=== PATIENT | female | born 1960 | race Caucasian/White ===

== ENCOUNTER → 2019-05-19 11:40 | Outpatient (BNVA) | payer MEDICAID, SELFPAY | PROVIDERS: Family Provider Family Medicine; PCP Family Medicine; Visit Provider Podiatrist Foot & Ankle Surgery | DX: M21.612 Bunion of left foot (principal) | CPT/HCPCS: 73620; 73630 ==

== ENCOUNTER 2019-06-10 11:06 | Outpatient (CLI) | payer MEDICAID, SELFPAY ==
--- NOTE | 2019-06-10 11:15 | XR_ITS ---
WS: [id number] KNEES AP STANDING TECHNIQUE: Bilateral AP weightbearing view. CLINICAL INFORMATION: PAIN COMPARISON: None. FINDINGS: Bilateral AP weightbearing standing views. Mild bilateral medial compartment narrowing left greater t topete right. Lateral compartments are better preserved. Mild hypertrophic changes along the joint line. Small left suprapatellar effusion. Moderate narrowing at the patellofemoral articulations bilaterall y. XR/[place] [id number] IMPRESSION: 1. Mild bilateral medial compartment narrowing left greater than right. 2. Small left suprapatellar effusion.
== END 2019-06-10 11:07 | disposition home or self-care (01) ==
LOC: RAD 11:10
PROVIDERS: Family Provider Family Medicine; PCP Family Medicine; Visit Provider Orthopaedic Surgery
DX: M25.469 Effusion, unspecified knee (principal); M25.569 Pain in unspecified knee
CPT/HCPCS: 73565

== ENCOUNTER → 2019-06-16 10:58 | Outpatient (BNVA) | payer MEDICAID, SELFPAY | PROVIDERS: Family Provider Family Medicine; PCP Family Medicine; Visit Provider Family Medicine | DX: M25.562 Pain in left knee (principal); G89.29 Other chronic pain; I10 Essential (primary) hypertension; Z13.220 Encounter for screening for lipoid disorders; Z13.6 Encounter for screening for cardiovascular disorders; Z13.1 Encounter for screening for diabetes mellitus | CPT/HCPCS: 80053; 80061; 83036; 83721 ==

== ENCOUNTER → 2019-07-09 13:15 | Outpatient (BNVA) | payer MEDICAID, SELFPAY | PROVIDERS: Family Provider Family Medicine; PCP Family Medicine; Visit Provider Nurse Practitioner | DX: F43.12 Post-traumatic stress disorder, chronic (principal); F33.2 Major depressive disorder, recurrent severe without psychotic features | CPT/HCPCS: 99213 ==

== ENCOUNTER 2019-09-25 14:24 | Outpatient (CLI) | payer MEDICAID, SELFPAY ==
--- NOTE | 2019-09-25 14:39 | MR_ITS ---
WS: [id number] MRI LEFT KNEE HISTORY: left knee osteoarthritis COMPARISON: 06/10/2019 radiographs. Anterior cruciate ligament: Moderate increased signal throughout the ACL and the ACL is very thin dis tally. Majority of the fibers are intact but there is probably a partial tear. Posterior cruciate ligament: Intact. Medial collateral ligament: MCL is slightly displaced from the knee joint by an extruded meniscus and osteophytes. Posterior lateral corner structures: There is increased signal in the popliteus tendon and the fibula r collateral ligament consistent with a partial tear. Medial menisci: Increased signal in the posterior horn blunting of the free edge. There is abnormal s ignal towards the meniscal root and also extending along the inferior articular surface. Anterior hor n is normal. Lateral meniscus: Intact. Normal signal, size and shape. Extensor mechanism: Distal quadriceps tendon and patellar tendons are intact. Fluid and soft tissue: Moderate-sized suprapatellar joint effusion. Fluid extends along the popliteus tendon and muscle. There is a very small Rand's cyst. Osseous and articular structures: Patellofemoral compartment: Mild narrowing of the joint space. Thinning and loss of cartilage over th e patellar eminence and medial patellar facet. No marrow edema within the patella. Medial compartment: Moderate narrowing of the medial compartment with small osteophytes. Mild thinnin g of the cartilage. There is a small amount of marrow edema in the far medial tibial plateau. No subc hondral cystic changes along the weightbearing surface. Lateral compartment: Very mild narrowing of the lateral compartment with small osteophytes. Thinning of the cartilage and fissuring. No marrow edema. MR/MR knee LT wo con* [id number] IMPRESSION: 1. Moderate-sized joint effusion with fluid extending along the popliteus tend on. 2. Partial tears involving the popliteus tendon and the fibular collateral lig ament. 3. Abnormal signal in the posterior horn medial meniscus along the inferior ar ticular surface and towards the meniscal root consistent with tears. 4. Partial tear ACL. 5. 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
== END 2019-09-25 14:25 | disposition home or self-care (01) ==
LOC: RADWPI 14:27
PROVIDERS: Family Provider Family Medicine; PCP Family Medicine; Visit Provider Orthopaedic Surgery
DX: M17.12 Unilateral primary osteoarthritis, left knee (principal); M25.462 Effusion, left knee; S86.812A Strain of other muscle(s) and tendon(s) at lower leg level, left leg, initial encounter; X58.XXXA Exposure to other specified factors, initial encounter; S83.512A Sprain of anterior cruciate ligament of left knee, initial encounter; M22.42 Chondromalacia patellae, left knee
CPT/HCPCS: 73721

== ENCOUNTER → 2019-10-08 07:48 | Outpatient (BNVA) | payer MEDICAID, SELFPAY | PROVIDERS: Family Provider Family Medicine; PCP Family Medicine; Visit Provider Nurse Practitioner | DX: F43.12 Post-traumatic stress disorder, chronic (principal); F33.2 Major depressive disorder, recurrent severe without psychotic features; F41.0 Panic disorder [episodic paroxysmal anxiety] | CPT/HCPCS: 99214 ==

== ENCOUNTER → 2019-10-27 17:31 | Outpatient (BNVA) | payer MEDICAID, SELFPAY | PROVIDERS: Family Provider Family Medicine; PCP Family Medicine; Visit Provider Family Medicine | DX: M1A.0790 Idiopathic chronic gout, unspecified ankle and foot, without tophus (tophi) (principal); M17.12 Unilateral primary osteoarthritis, left knee; R74.8 Abnormal levels of other serum enzymes; A60.9 Anogenital herpesviral infection, unspecified; R30.0 Dysuria | CPT/HCPCS: 80053; 81000; 84550 ==

== ENCOUNTER → 2019-12-11 14:53 | Outpatient (BNVA) | payer MEDICAID, SELFPAY | PROVIDERS: Family Provider Family Medicine; PCP Family Medicine; Visit Provider Family Medicine | DX: D22.9 Melanocytic nevi, unspecified (principal) | CPT/HCPCS: 88305 ==

== ENCOUNTER → 2020-01-08 10:14 | Outpatient (BNVA) | payer MEDICAID, SELFPAY | PROVIDERS: Family Provider Family Medicine; PCP Family Medicine; Visit Provider Nurse Practitioner | DX: F33.2 Major depressive disorder, recurrent severe without psychotic features (principal); F43.12 Post-traumatic stress disorder, chronic | CPT/HCPCS: 99213 ==

== ENCOUNTER → 2020-01-12 17:53 | Outpatient (BNVA) | payer MEDICAID, SELFPAY | PROVIDERS: Family Provider Family Medicine; PCP Family Medicine; Visit Provider Nurse Practitioner Family | DX: Z01.818 Encounter for other preprocedural examination (principal) | CPT/HCPCS: 80048 ==

== ENCOUNTER → 2020-01-19 12:00 | Outpatient (BNVA) | payer MEDICAID, SELFPAY | PROVIDERS: Family Provider Family Medicine; PCP Family Medicine; Visit Provider Family Medicine | DX: E78.1 Pure hyperglyceridemia (principal); G47.00 Insomnia, unspecified; F17.200 Nicotine dependence, unspecified, uncomplicated; A60.00 Herpesviral infection of urogenital system, unspecified; G89.29 Other chronic pain; F51.04 Psychophysiologic insomnia; Z22.322 Carrier or suspected carrier of Methicillin resistant Staphylococcus aureus; R74.8 Abnormal levels of other serum enzymes; A60.9 Anogenital herpesviral infection, unspecified | CPT/HCPCS: 80053; 80061 ==

== ENCOUNTER → 2020-01-29 08:28 | Outpatient (BNVA) | payer MEDICAID, SELFPAY | PROVIDERS: Family Provider Family Medicine; PCP Family Medicine; Visit Provider Psychiatry & Neurology Psychiatry | DX: F33.2 Major depressive disorder, recurrent severe without psychotic features (principal); F43.12 Post-traumatic stress disorder, chronic; F11.20 Opioid dependence, uncomplicated; F17.200 Nicotine dependence, unspecified, uncomplicated; F41.1 Generalized anxiety disorder; F90.2 Attention-deficit hyperactivity disorder, combined type | CPT/HCPCS: 99214 ==

== ENCOUNTER → 2020-02-09 10:44 | Outpatient (BNVA) | payer MEDICAID, SELFPAY | PROVIDERS: Family Provider Family Medicine; PCP Family Medicine; Visit Provider Psychiatry & Neurology Psychiatry | DX: F11.20 Opioid dependence, uncomplicated (principal); F41.1 Generalized anxiety disorder | CPT/HCPCS: 80306 ==

== ENCOUNTER → 2020-03-05 08:28 | Outpatient (BNVA) | payer MEDICAID, SELFPAY | PROVIDERS: Family Provider Family Medicine; PCP Family Medicine; Visit Provider Psychiatry & Neurology Psychiatry | DX: F41.1 Generalized anxiety disorder (principal); F33.2 Major depressive disorder, recurrent severe without psychotic features; F43.12 Post-traumatic stress disorder, chronic; F11.20 Opioid dependence, uncomplicated | CPT/HCPCS: 99213 ==

== ENCOUNTER → 2020-05-12 14:39 | Outpatient (BNVA) | payer MEDICAID, SELFPAY | PROVIDERS: Family Provider Family Medicine; PCP Family Medicine; Visit Provider Family Medicine | DX: M79.7 Fibromyalgia (principal); M19.049 Primary osteoarthritis, unspecified hand; I10 Essential (primary) hypertension; E78.1 Pure hyperglyceridemia; R74.8 Abnormal levels of other serum enzymes; F17.200 Nicotine dependence, unspecified, uncomplicated; F51.04 Psychophysiologic insomnia; M1A.0790 Idiopathic chronic gout, unspecified ankle and foot, without tophus (tophi) | CPT/HCPCS: 80053; 80061 ==

== ENCOUNTER → 2020-12-15 10:45 | Outpatient (BNVA) | payer MEDICAID, SELFPAY | PROVIDERS: Family Provider Family Medicine; PCP Family Medicine; Visit Provider Nurse Practitioner Family | DX: G47.00 Insomnia, unspecified (principal); Z20.822 Contact with and (suspected) exposure to COVID-19 | CPT/HCPCS: 87635 ==

== ENCOUNTER → 2020-12-23 11:18 | Outpatient (BNVA) | payer MEDICAID, SELFPAY | PROVIDERS: Family Provider Family Medicine; PCP Family Medicine; Visit Provider Family Medicine | DX: M1A.0790 Idiopathic chronic gout, unspecified ankle and foot, without tophus (tophi) (principal); I10 Essential (primary) hypertension; J41.0 Simple chronic bronchitis; J44.9 Chronic obstructive pulmonary disease, unspecified; M10.9 Gout, unspecified; F51.04 Psychophysiologic insomnia; J30.2 Other seasonal allergic rhinitis; J02.9 Acute pharyngitis, unspecified | CPT/HCPCS: 80053; 84550; 85025 ==

== ENCOUNTER → 2021-01-24 11:40 | Outpatient (BNVA) | payer MEDICAID, SELFPAY | PROVIDERS: Family Provider Family Medicine; PCP Family Medicine; Visit Provider Family Medicine | DX: C44.92 Squamous cell carcinoma of skin, unspecified (principal) | CPT/HCPCS: 88304 ==

== ENCOUNTER → 2021-09-05 14:57 | Outpatient (BNVA) | payer MEDICAID, SELFPAY | PROVIDERS: Family Provider Family Medicine; PCP Family Medicine; Visit Provider Family Medicine | DX: J44.9 Chronic obstructive pulmonary disease, unspecified (principal); J41.0 Simple chronic bronchitis; E78.1 Pure hyperglyceridemia; I10 Essential (primary) hypertension | CPT/HCPCS: 80053; 80061; 83721; 85025 ==

== ENCOUNTER → 2021-10-09 15:57 | Outpatient (BNVA) | payer MEDICAID, SELFPAY | PROVIDERS: Family Provider Family Medicine; PCP Family Medicine; Visit Provider Emergency Medicine | DX: S69.91XA Unspecified injury of right wrist, hand and finger(s), initial encounter (principal); X58.XXXA Exposure to other specified factors, initial encounter | CPT/HCPCS: 73140 ==

== ENCOUNTER → 2021-11-23 10:28 | Outpatient (BNVA) | payer MEDICAID, SELFPAY | PROVIDERS: Family Provider Family Medicine; PCP Family Medicine; Visit Provider Family Medicine | DX: Z20.822 Contact with and (suspected) exposure to COVID-19 (principal); M19.049 Primary osteoarthritis, unspecified hand; M47.816 Spondylosis without myelopathy or radiculopathy, lumbar region; S62.639A Displaced fracture of distal phalanx of unspecified finger, initial encounter for closed fracture; R10.9 Unspecified abdominal pain; M79.7 Fibromyalgia | CPT/HCPCS: 87635 ==

== ENCOUNTER 2021-12-19 06:12 | Outpatient (CLI) | payer MEDICAID, SELFPAY ==
--- NOTE | 2021-12-19 06:15 | US_ITS ---
WS: [id number] Exam: US abdomen complete* [id number] Date/Time of Exam: 12/19/2021 6:20 AM Reason For Exam: R10.9 - Unspecified abdominal pain The liver is echodense which probably indicates hepatic steatosis. The liver measures 15.6 cm at grea test dimension. The common bile duct is dilated and measures 1.13 cm at greatest diameter. The kidney s are of normal size, shape and location. No solid or cystic renal mass. No renal obstruction. The ri ght kidney measures 10.34 x 4.3 x 4.75 cm. The left kidney measures 9.8 x 4.4 x 4.4 cm. The spleen is not enlarged. The gallbladder is unremarkable. The pancreas is sonographically unremarkable. No free fluid or mass in the abdomen. The IVC is patent with phasic flow. The portal vein is patent with hep atopedal flow. Abdominal aorta is normal in caliber. US/US abdomen complete* [id number] IMPRESSION: 1. Abnormal dilatation the common bile duct measuring 1.[address] Obstruction secondary to neoplasm or retained stone might be a considerati on. 2. Echodense liver which might be seen with hepatic steatosis.
== END 2021-12-19 06:13 | disposition home or self-care (01) ==
LOC: RAD 06:13
PROVIDERS: PCP Family Medicine; Visit Provider Family Medicine
DX: R10.9 Unspecified abdominal pain (principal)
CPT/HCPCS: 76700